=== PATIENT | female | born 1985 ===

== ENCOUNTER 2018-01-10 16:00 | Outpatient (REF) | payer MEDICAID, SELFPAY ==
[2018-01-10 21:23] LABS: Abs Immature Grans 0.01 k/cumm (0.0-0.09); Absolute Basophil Count 0.06 k/cumm (0.0-0.2); Absolute Lymphocyte Count 1.68 k/cumm (1.2-3.4); Absolute Monocyte Count 0.53 k/cumm (0.11-0.7); Absolute Neutrophil Count 5.79 k/cumm (1.2-6.7); Basophils % 0.7; Eosinophils % 1.2; HCT 39.5 % (36.0-46.0); HGB 13.7 g/dL (12.0-15.5); Immature Grans % 0.1; Lymphocytes % 20.6; Mean Corp. HGB Concentration 34.7 g/dL (32.0-36.0); Mean Corpuscular Hemoglobin 31.3 pg (27.0-33.0); Mean Corpuscular Volume 90.2 fL (80-95); Mean Platelet Volume 11.8 fL (8.0-11.0); Monocytes % 6.5; Neutrophils % 70.9; Platelet Count 221 x1000/uL (130-400); RBC 4.38 m/cumm (4.00-5.20); RBC Distribution Width 12.7 % (11.7-14.6); White Blood Cell Count 8.17 k/cumm (4.4-10.8)
[2018-01-10 22:08] LABS: ALT 14 U/L (12-78); AST 10 U/L (15-37); Alkaline Phosphatase 46 U/L (46-116); Anion Gap 10.9 mmol/L (3-11); BUN 25 mg/dL (7-18); Bilirubin, Total 0.4 mg/dL (0.2-1.0); CO2 26.1 mmol/L (21.0-32.0); CREATININE 1.16 mg/dL (0.55-1.02); Calcium 9.2 mg/dL (8.5-10.1); Chloride 101 mmol/L (98-107); Estimated GFR 54.85 (mL/min/1.73m2); Glucose 183 mg/dL (70-100); Potassium 3.9 mmol/L (3.5-5.1); Sodium 138 mmol/L (136-145); Total Protein 6.9 g/dL (6.4-8.2)
[2018-01-10 22:37] LABS: Amylase 55 U/L (25-115); Lipase 39 U/L (73-393)
== END 2018-01-10 16:01 ==
LOC: NCHCN 16:00
PROVIDERS: PCP Family Medicine; Visit Provider Family Medicine
DX: R10.9 Unspecified abdominal pain (principal); R11.0 Nausea
CPT/HCPCS: 80053; 83690; 82150; 85025

== ENCOUNTER 2018-05-15 18:10 | Outpatient (REF) | payer MEDICAID, SELFPAY ==
[2018-05-15 22:04] LABS: C-Reactive Protein 0.39 mg/dL (0.0-0.3)
[2018-05-15 22:23] LABS: ESR 3 MM/HR (0-20)
== END 2018-05-15 18:30 ==
LOC: NCHCN 18:10
PROVIDERS: PCP Family Medicine; Visit Provider Family Medicine
DX: M35.9 Systemic involvement of connective tissue, unspecified (principal)
CPT/HCPCS: 85652; 86140

== ENCOUNTER 2018-06-13 15:34 | Outpatient (REF) | payer MEDICAID, SELFPAY ==
[2018-06-13 21:59] LABS: ESR 7 MM/HR (0-20)
== END 2018-06-13 15:54 ==
LOC: NCHCN 15:34
PROVIDERS: PCP Family Medicine; Visit Provider Family Medicine
DX: M35.9 Systemic involvement of connective tissue, unspecified (principal)
CPT/HCPCS: 85652; 86141

== ENCOUNTER 2018-11-20 15:43 | Outpatient (REF) | payer MEDICAID, SELFPAY ==
[2018-11-20 22:39] LABS: COMMENT (LAB VIEW ONLY) 130.47 mg/dL; Microalb ug/mg Crea 187.1 ug/mg Cr
== END 2018-11-20 16:03 ==
LOC: NCHCN 15:43
PROVIDERS: PCP Family Medicine; Visit Provider Registered Nurse
DX: E10.9 Type 1 diabetes mellitus without complications (principal)
CPT/HCPCS: 82043; 82570

== ENCOUNTER 2019-03-17 15:42 | Outpatient (REF) | payer MEDICAID, SELFPAY ==
[2019-03-17 22:02] LABS: TSH 1.38 uIU/mL (0.36-3.74)
[2019-03-18 10:00] LABS: FREE T4 1.36 ng/dL (0.76-1.46)
[2019-03-18 17:43] LABS: T3, Total 131 ng/dl (97-169)
== END 2019-03-17 16:02 ==
LOC: NCHCO 15:42
PROVIDERS: PCP Family Medicine; Visit Provider Registered Nurse
DX: E03.9 Hypothyroidism, unspecified (principal)
CPT/HCPCS: 84439; 84443; 84480